=== PATIENT | male | born 1950 | race Two or more races ===

== ENCOUNTER → 2017-01-17 | Outpatient (CLI) | payer MEDICARE, BC ==
--- NOTE | 2017-02-10 00:54 | ECWPNPC ---
PATIENT NAME: PABLO MALDONADO : 1950 GENDER: MALE VISIT DATE: 01/17/2017 DISCHARGE DATE: 01/17/17 1202 VISIT LOCKED DATE TIME: PHYSICIAN: TIFFANY GUZMAN RESOURCE: TIFFANY GUZMAN HISTORY OF PRESENT ILLNESS HISTORY OF PRESENT ILLNESS: PAIN THE PATIENT DESCRIBES THE PAIN... FALL RISK SCREENING: SCREENING :NO FALLS IN THE PAST YEAR TODAY'S VISIT: NOTES: RATES PAIN TODAY 9/10. DESCRIBES PAIN CONSTANT AND SORE. HAS NOT YET COMPLETED CT OF LUMBAR SPINE.. IS SEEING DR OROSCO FOR LOWER EXTREMITES AND REPORTS LESIONS ARE HEALING SLOWLY.FELL 3 WEEKS AGO - LEGS GAVE OUT FROM BACK PAIN. VERY HARD TO STAND, AMBULATE IS NOT USING BACK BRACE IT IS RUBBING AND HURING THE SKIM ON HIS ARMS. REPORTS HE IS HAVE PRESSURE ULCRES TO SACRUM. CURRENT MEDICATIONS TAKING NOVOLOG FLEXPEN 100 UNIT/ML SOLUTION PEN-INJECTOR SUBCUTANEOUS SLIDING SCALE, NOTES: SLIDING SCALE TAKING VITAMIN D 02243 U TABLET ORALLY WEEKLY TAKING PANTOPRAZOLE SODIUM 20 MG TABLET DELAYED RELEASE 2 TABLETS ORALLY ONCE A DAY TAKING ZOFRAN 8 MG TABLET 1 TABLET ORALLY ONCE A DAY PRN TAKING TOPROL XL 25 MG TABLET EXTENDED RELEASE 24 HOUR 1/2 TABLET ORALLY ONCE A DAY TAKING PRAVASTATIN SODIUM 20 MG TABLET 1 TABLET ORALLY ONCE A DAY TAKING BENADRYL 25 MG CAPSULE ORALLY FOUR TIMES DAILY NEEDED TAKING CRANBERRY 500 MG CAPSULE 2 CAPS ORALLY DAILY TAKING ASPIRIN ADULT LOW DOSE 81 MG TABLET DELAYED RELEASE 1 TABLET ORALLY ONCE A DAY TAKING ACETAMINOPHEN 325 MG TABLET 2 TABLETS NEEDED ORALLY EVERY 6 HRS, NOTES: TAKING 3 TABS BID TAKING GABAPENTIN 300 MG CAPSULE 1 CAPSULE ORALLY DAILY TAKING FISH OIL 1200 MG CAPSULE 1 CAPSULE ORALLY ONCE A DAY, NOTES: DOESN'T USUALLY TAKE DAILY TAKING DIGESTIVE ADVANTAGE - CAPSULE ORALLY 3X/WEEK TAKING VITAMIN C 500 MG TABLET 2 TABLETS ORALLY ONCE A DAY TAKING SOMA 350 MG TABLET 1 TABLET NEEDED ORALLY THREE TIMES DAILY NEEDEDMDD=3 TAKING MS CONTIN 30 MG TABLET EXTENDED RELEASE 1 TABLET ORALLY Q 12 HOURS MDD=2 TAKING OXYBUTYNIN CHLORIDE 5 MG TABLET 1 TABLET ORALLY TWICE A DAY NOT-TAKING NORCO 7.5-325 MG TABLET 1 TABLET NEEDED ORALLY EVERY 6 HRS NOT-TAKING CIPRO 500 MG TABLET 1 TABLET ORALLY TWICE A DAY, NOTES: FOR UTI MEDICATION LIST REVIEWED AND RECONCILED WITH THE PATIENT PAST MEDICAL HISTORY TYPE II DIABETES MELLITUS CHRONIC PAIN SYNDROME PRURITIS VITAMIN D DEFICIENCY GERD HYPERLIPIDEMIA HYPERTENSION 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 REVIEW OF SYSTEMS CONSTITUTIONAL: ANY CHANGE IN YOUR MEDICAL CONDITION? NO . CHILLS NO . FEVER NO . INFECTION: DO YOU HAVE NEW INFECTIONS? NO . DO YOU HAVE HISTORY OF MRSA? NO . MUSCULOSKELETAL: ANY NEW PATTERNS OF PAIN OR NUMBNESS? NO . GASTROENTEROLOGY: GENERAL HAVING CONSTIPATION - FEELS COLACE IS GIVING DIARHEA. . ANY NEW CHANGE IN BOWEL CONTROL? NO . GENITOURINARY: ANY NEW CHANGE IN BLADDER CONTROL? NO . IS THERE A CHANCE YOU COULD BE ? NO . HEMATOLOGY/LYMPH: DO YOU TAKE ANY BLOOD THINNERS? (FOR EXAMPLE- COUMADIN, PLAVIX, AGGRENOX, PLATEL, PRADAXA, OR XARELTO) NO . WHEN WAS YOUR LAST DOSE? DATE: TIME: . NEUROLOGY: HAVE YOU FALLEN IN THE PAST 6 MONTHS? YES . ANY NEW EXTREMITY NUMBNESS OR WEAKNESS? NO . CARDIOLOGY: DO YOU HAVE A PACEMAKER OR DEFIBRILLATOR? NO . RESPIRATORY: HAVE YOU BEEN SICK IN THE PAST WEEK? NO . FEVER NO . FLU LIKE SYMPTOMS? NO . COUGH NO . INTEGUMENTARY: DO YOU HAVE ANY RASHES OR OPEN SORES? YES, OPEN SORES BOTH LEGS . ALLERGIC/IMMUNO: ARE YOU ALLERGIC TO SHELLFISH OR IV DYE? NO . ANY NEW ALLERGIES? NO . PSYCHIATRIC: DO YOU HAVE THOUGHTS OF HURTING YOURSELF OR SOMEONE ELSE? NO . ARE YOU ABUSED, NEGLECTED, OR IN AN UNSAFE ENVIRONMENT? NO . ENDOCRINOLOGY: ARE YOU DIABETIC? YES 250 - 300 BLOOD SUGARS. FOLLOWED CLOSELY BY PCP . OTHER: DO YOU NEED ANY PRESCRIPTIONS? YES . IF YES, PLEASE LIST: SOMA AND MORPHINE . ANY NEW PROBLEMS WITH YOUR MEDICATIONS? NO . WHEN DID YOU LAST EAT? ____ . WHEN DID YOU LAST DRINK? ____ . WHAT DID YOU LAST DRINK? ____ . NAME OF PERSON DRIVING YOU HOME? ____ . DO YOU HAVE ANY OTHER QUESTIONS OR CONCERNS NO . REVIEWED BY: PROVIDER: TIFFANY MARTIN . VITAL SIGNS WT 293 LBS, HT 61 IN, BMI 55.36 INDEX, BP 167/77 MM HG, HR 95 /MIN, RR 18 /MIN, TEMP 97.8 F, OXYGEN SAT % 93, NA INITIALS AW 1101, REVIEWED BY: CS. EXAMINATION GENERAL EXAMINATION: GENERAL APPEARANCE:USING WHEELCHAIR FOR MOBILITY - HAS 1/2 TLSO BRACE SUPPORT.. PSYCHALERT , ORIENTED X 3 , APPROPRIATE MOOD AND AFFECT , TALKATIVE. HEENT: NECK ENLARGED BUT NO PALPABLE THYROMEGLY,. LUNGS:CLEAR TO AUSCULTATION BILATERALLY, DECREASED AIR ENTRY AT BASES. HEART:NO CAROTID BRUITS, HEART RATE REGULAR, NORMAL S1S2, NO MURMURS, CLICK OR RUBS. MUSCULOSKELETAL:MUSCLE STRENGTH TESTING 4/5 BILATERAL LOWER EXTREMITIES. PAIN WITH PALPATION OVER LUMBAR SPINOUS PROCESSES. , TRIGGER POINTSAND TIGHT FIBROUS BANDS OVER LUMBAR AND THORACIC PARAVERTEBRAL MUSCLES. IS ABLE TO RISE TO STANDING POSITION. GAIT WIDEBASED, REQUIRES HANDHOLDS FOR BALANCE. EXTREMITIES:STASIS DERMATITIS BILATERALLY, BILATERAL PITTING EDEMA, SATURATED DRESSING INTACTED TO LEFT LEG. PERIPHERAL PULSES:UNABLE TO PALPATE DUE TO WOUNDS AND EDEMA.. ASSESSMENTS DORSALGIA, UNSPECIFIED - M54.9 (PRIMARY) CHRONIC PRESCRIPTION OPIATE USE - Z79.891 TREATMENT DORSALGIA, UNSPECIFIED REFILL MS CONTIN TABLET EXTENDED RELEASE, 30 MG, 1 TABLET, ORALLY, Q 12 HOURS MDD=2, 30 DAY(S), 60, REFILLS 0 REFILL SOMA TABLET, 350 MG, 1 TABLET NEEDED, ORALLY, THREE TIMES DAILY NEEDEDMDD=3, 30 DAY(S), 90, REFILLS 0 NOTES: REVIEWED DIET - BE SURE TO GET ADEQUETE PROTEIN DAILY FOR WOUND HEALING. STAND AND STRETCH DAILY. ROTATE ANKLES AND SHOULDER. GET CT OF BACK DONE. CONTINUE CURRENT MEDS. PROCEDURE CODES FA211 ESTABILISHED PATIENT [facility] FACILITY CHARGE G8730 PAIN ASSESS POS TOOL F/U PLAN DOC G8427 DOC MEDS VERIFIED W/PT OR RE DISPOSITION & COMMUNICATION FOLLOW UP 26-28 DAYS (REASON: BACK PAIN /CT REVIEW) ELECTRONICALLY SIGNED BY ROBYN BECERRA ON 02/09/2017 AT 10:41 AM EDT DISCLAIMER : THIS IS A VISIT SUMMARY EXTRACTED FROM THE [employer] CHART. IT IS NOT A COPY OF THE [employer] PROGRESS NOTE. MTDD
== END ==
LOC: M PAIN 11:00
PROVIDERS: ATTEND Nurse Practitioner Family
DX: G89.29 Other chronic pain (principal); M54.9 Dorsalgia, unspecified; E11.9 Type 2 diabetes mellitus without complications; E55.9 Vitamin D deficiency, unspecified; K21.9 Gastro-esophageal reflux disease without esophagitis; E78.5 Hyperlipidemia, unspecified; I10 Essential (primary) hypertension; L29.9 Pruritus, unspecified; K59.00 Constipation, unspecified; N28.9 Disorder of kidney and ureter, unspecified; I73.9 Peripheral vascular disease, unspecified; Z79.891 Long term (current) use of opiate analgesic; Z87.442 Personal history of urinary calculi; Z79.4 Long term (current) use of insulin; Z79.82 Long term (current) use of aspirin; Z79.899 Other long term (current) drug therapy

== ENCOUNTER → 2017-02-15 | Outpatient (CLI) | payer MEDICARE, BC | LOC: M PAIN 11:00 | PROVIDERS: ATTEND Nurse Practitioner Family | DX: G89.29 Other chronic pain (principal); M54.9 Dorsalgia, unspecified; E11.42 Type 2 diabetes mellitus with diabetic polyneuropathy; E55.9 Vitamin D deficiency, unspecified; K21.9 Gastro-esophageal reflux disease without esophagitis; M48.06 Spinal stenosis, lumbar region; E11.51 Type 2 diabetes mellitus with diabetic peripheral angiopathy without gangrene; E78.5 Hyperlipidemia, unspecified; I10 Essential (primary) hypertension; K59.00 Constipation, unspecified; Z79.891 Long term (current) use of opiate analgesic; Z87.442 Personal history of urinary calculi; Z79.4 Long term (current) use of insulin; Z79.82 Long term (current) use of aspirin; Z79.899 Other long term (current) drug therapy | CPT/HCPCS: 97597; G0463 ==

== ENCOUNTER → 2017-03-15 | Outpatient (CLI) | payer MEDICARE, BC ==
--- NOTE | 2017-04-04 03:41 | ECWPNPC ---
PATIENT NAME: PABLO MALDONADO : 1950 GENDER: MALE VISIT DATE: 03/15/2017 DISCHARGE DATE: 03/15/17 1140 VISIT LOCKED DATE TIME: PHYSICIAN: TIFFANY GUZMAN RESOURCE: TIFFANY GUZMAN REASON FOR APPOINTMENT 1. BACK PAIN HISTORY OF PRESENT ILLNESS HISTORY OF PRESENT ILLNESS: PAIN THE PATIENT DESCRIBES THE PAIN... FALL RISK SCREENING: SCREENING :NO FALLS IN THE PAST YEAR TODAY'S VISIT: NOTES: REPORTS PAIN 9/10. IN BACK. LEGS ARE NEARLY HEALED. NOTES DR OROSCO HAS DONE REALLY GOOD WORK TO HELP WITH THIS. IS STILL HAVING ISSUES WITH SACRAL LESIONS. IS ASKING TODAY ABOUT A RECOMMENDATION FOR A POWER CHAIR. REPORTS HIS BACK PAIN IS CURRENTLY THE WORSE.. CURRENT MEDICATIONS TAKING NOVOLOG FLEXPEN 100 UNIT/ML SOLUTION PEN-INJECTOR SUBCUTANEOUS SLIDING SCALE, NOTES: SLIDING SCALE TAKING VITAMIN D 69877 U TABLET ORALLY WEEKLY TAKING PANTOPRAZOLE SODIUM 20 MG TABLET DELAYED RELEASE 2 TABLETS ORALLY ONCE A DAY TAKING ZOFRAN 8 MG TABLET 1 TABLET ORALLY ONCE A DAY PRN TAKING TOPROL XL 25 MG TABLET EXTENDED RELEASE 24 HOUR 1/2 TABLET ORALLY ONCE A DAY TAKING PRAVASTATIN SODIUM 20 MG TABLET 1 TABLET ORALLY ONCE A DAY TAKING BENADRYL 25 MG CAPSULE ORALLY FOUR TIMES DAILY NEEDED TAKING CRANBERRY 500 MG CAPSULE 2 CAPS ORALLY DAILY TAKING ASPIRIN ADULT LOW DOSE 81 MG TABLET DELAYED RELEASE 1 TABLET ORALLY ONCE A DAY TAKING ACETAMINOPHEN 325 MG TABLET 2 TABLETS NEEDED ORALLY EVERY 6 HRS, NOTES: TAKING 3 TABS BID TAKING GABAPENTIN 300 MG CAPSULE 1 CAPSULE ORALLY DAILY TAKING FISH OIL 1200 MG CAPSULE 1 CAPSULE ORALLY ONCE A DAY, NOTES: DOESN'T USUALLY TAKE DAILY TAKING DIGESTIVE ADVANTAGE - CAPSULE ORALLY 3X/WEEK TAKING VITAMIN C 500 MG TABLET 2 TABLETS ORALLY ONCE A DAY TAKING OXYBUTYNIN CHLORIDE 5 MG TABLET 1 TABLET ORALLY TWICE A DAY TAKING MS CONTIN 30 MG TABLET EXTENDED RELEASE 1 TABLET ORALLY Q 12 HOURS MDD=2 TAKING SOMA 350 MG TABLET 1 TABLET NEEDED ORALLY THREE TIMES DAILY NEEDEDMDD=3 NOT-TAKING NORCO 7.5-325 MG TABLET 1 TABLET NEEDED ORALLY EVERY 6 HRS NOT-TAKING CIPRO 500 MG TABLET 1 TABLET ORALLY TWICE A DAY, NOTES: FOR UTI MEDICATION LIST REVIEWED AND RECONCILED WITH THE PATIENT PAST MEDICAL HISTORY TYPE II DIABETES MELLITUS CHRONIC PAIN SYNDROME PRURITIS VITAMIN D DEFICIENCY GERD HYPERLIPIDEMIA HYPERTENSION 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 SURGICAL HISTORY BROKEN NECK 1968 URETERAL STENT X2 2016 FAMILY HISTORY FATHER: , DIAGNOSED WITH HEART DISEASE MOTHER: , DIAGNOSED WITH HEART DISEASE, STROKE DAUGHTER(S): ALIVE 1DAUGHTER(S) - HEALTHY. HOSPITALIZATION/MAJOR DIAGNOSTIC PROCEDURE BROKEN NECK 1968 RINGWORM 195 KIDNEY FAILURE 2016 CORRECTION FOR PHYSICAL REHAB 07/2016-09/2016 OSTEOMYLITIS 2008 BLOOD CLOTS IN LUNGS AND SHOULDER 2004 EDEMA IN LEGS 1998 OSTEOMYLITIS 2009 & 2012 REVIEW OF SYSTEMS REVIEWED BY: PROVIDER: TIFFANY GUZMAN TABULAR TYPIST . CONSTITUTIONAL: ANY CHANGE IN YOUR MEDICAL CONDITION? NO . CHILLS NO . FEVER NO . INFECTION: DO YOU HAVE NEW INFECTIONS? NO . DO YOU HAVE HISTORY OF MRSA? NO . MUSCULOSKELETAL: ANY NEW PATTERNS OF PAIN OR NUMBNESS? NO . GASTROENTEROLOGY: ANY NEW CHANGE IN BOWEL CONTROL? NO . GENITOURINARY: ANY NEW CHANGE IN BLADDER CONTROL? NO . IS THERE A CHANCE YOU COULD BE ? NO . HEMATOLOGY/LYMPH: DO YOU TAKE ANY BLOOD THINNERS? (FOR EXAMPLE- COUMADIN, PLAVIX, AGGRENOX, PLATEL, PRADAXA, OR XARELTO) NO . WHEN WAS YOUR LAST DOSE? DATE: TIME: . NEUROLOGY: HAVE YOU FALLEN IN THE PAST 6 MONTHS? NO . ANY NEW EXTREMITY NUMBNESS OR WEAKNESS? NO . CARDIOLOGY: DO YOU HAVE A PACEMAKER OR DEFIBRILLATOR? NO . RESPIRATORY: HAVE YOU BEEN SICK IN THE PAST WEEK? NO . FEVER NO . FLU LIKE SYMPTOMS? NO . COUGH NO . INTEGUMENTARY: DO YOU HAVE ANY RASHES OR OPEN SORES? YES BILATERAL LOWER LEGS SEE DR OROSCO FOR CARE . ALLERGIC/IMMUNO: ARE YOU ALLERGIC TO SHELLFISH OR IV DYE? NO . ANY NEW ALLERGIES? NO . PSYCHIATRIC: DO YOU HAVE THOUGHTS OF HURTING YOURSELF OR SOMEONE ELSE? NO . ARE YOU ABUSED, NEGLECTED, OR IN AN UNSAFE ENVIRONMENT? NO . ENDOCRINOLOGY: ARE YOU DIABETIC? YES - 230 - [address] LANDA'S TEAM IS ASSISTNG AND STARTING NEW MED&NBSP;. OTHER: DO YOU NEED ANY PRESCRIPTIONS? YES MORPHINE AND SOMA . IF YES, PLEASE LIST: ____ . ANY NEW PROBLEMS WITH YOUR MEDICATIONS? NO . WHEN DID YOU LAST EAT? ____ . WHEN DID YOU LAST DRINK? ____ . WHAT DID YOU LAST DRINK? ____ . NAME OF PERSON DRIVING YOU HOME? ____ . DO YOU HAVE ANY OTHER QUESTIONS OR CONCERNS NO . PSYCHOLOGY: HIGH STRESS LEVEL LIMITED MOBILITTY, FAMILY SITUATION AND IS RECOVERING FROM FOOT . VITAL SIGNS WT 300.0 LBS, HT 61 IN, BMI 56.68 INDEX, BP 174/81 MM HG, HR 89 /MIN, RR 18 /MIN, TEMP 97.9 F, OXYGEN SAT % 93%, NA INITIALS TL 1048, REVIEWED BY: KGELEVATED BP, PATIENT STATES IT IS HIS NORMAL- TL. EXAMINATION GENERAL EXAMINATION: GENERAL APPEARANCE:USING WHEELCHAIR FOR MOBILITY - HAS 1/2 TLSO BRACE SUPPORT.. PSYCHALERT , ORIENTED X 3 , APPROPRIATE MOOD AND AFFECT , TALKATIVE. LUNGS:CLEAR TO AUSCULTATION BILATERALLY, DECREASED AIR ENTRY AT BASES. HEART:HEART RATE REGULAR. MUSCULOSKELETAL:MUSCLE STRENGTH TESTING 4/5 BILATERAL LOWER EXTREMITIES. PAIN WITH PALPATION OVER LUMBAR SPINOUS PROCESSES. , TRIGGER POINTSAND TIGHT FIBROUS BANDS OVER LUMBAR AND THORACIC PARAVERTEBRAL MUSCLES. IS ABLE TO RISE TO STANDING POSITION. GAIT WIDEBASED, REQUIRES HANDHOLDS FOR BALANCE. EXTREMITIES:STASIS DERMATITIS BILATERALLY, BILATERAL PITTING EDEMA,DRESSING INTACT TO LEFT LEG WITHOUT OBSERVED DRAINAGE TODAY.. PERIPHERAL PULSES:UNABLE TO PALPATE DUE TO WOUNDS AND EDEMA.. 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 THERE IS HYPERTROPHY OF [place] FLAVA AND POSTERIOR FACETS AT ALL LEVELS. POST EVIDENCE OF OSTEOMYELITIS NOTED. REPORT GIVEN TO DR SERRANO FOR REVIEW FOR FUTURE INTERVENTIONAL TREATMENT ONCE LEG WOUNDS ARE HEALED. ASSESSMENTS OTHER CHRONIC PAIN - G89.29 (PRIMARY) DORSALGIA, UNSPECIFIED - M54.9 DIABETIC POLYNEUROPATHY ASSOCIATED WITH TYPE 2 DIABETES MELLITUS - E11.42 CHRONIC PRESCRIPTION OPIATE USE - Z79.891 TREATMENT OTHER CHRONIC PAIN REFILL MS CONTIN TABLET EXTENDED RELEASE, 30 MG, 1 TABLET, ORALLY, Q 12 HOURS MDD=2, 30 DAY(S), 60, REFILLS 0 REFILL SOMA TABLET, 350 MG, 1 TABLET NEEDED, ORALLY, THREE TIMES DAILY NEEDEDMDD=3, 30 DAY(S), 90, REFILLS 0 NOTES: CONTINUE CURRENT MEDS. RECOMMEND POWER CHAIR FOR MOBILITY, SAFETY, AND TO IMPROVE SKIN HEALING. START PHYSICAL THERAPY. PROCEDURE CODES FA211 ESTABILISHED PATIENT [facility] CHARGE G8730 PAIN ASSESS POS TOOL F/U PLAN DOC G8427 DOC MEDS VERIFIED W/PT OR RE DISPOSITION & COMMUNICATION FOLLOW UP 26-28 DAYS (REASON: BACK PAIN) ELECTRONICALLY SIGNED BY ROBYN BECERRA ON 04/03/2017 AT 09:09 AM EDT DISCLAIMER : THIS IS A VISIT SUMMARY EXTRACTED FROM THE [employer] CHART. IT IS NOT A COPY OF THE [employer] PROGRESS NOTE. ROXIED
== END ==
LOC: M PAIN 10:20
PROVIDERS: ATTEND Nurse Practitioner Family
DX: G89.29 Other chronic pain (principal); M54.9 Dorsalgia, unspecified; E11.42 Type 2 diabetes mellitus with diabetic polyneuropathy; E55.9 Vitamin D deficiency, unspecified; K21.9 Gastro-esophageal reflux disease without esophagitis; E78.5 Hyperlipidemia, unspecified; I10 Essential (primary) hypertension; K59.00 Constipation, unspecified; I73.9 Peripheral vascular disease, unspecified; Z87.442 Personal history of urinary calculi; Z79.891 Long term (current) use of opiate analgesic; Z79.4 Long term (current) use of insulin; Z79.82 Long term (current) use of aspirin; Z79.899 Other long term (current) drug therapy; Z86.711 Personal history of pulmonary embolism; Z86.718 Personal history of other venous thrombosis and embolism
CPT/HCPCS: 29581; G0463

== ENCOUNTER → 2017-04-04 | Outpatient (REF) | payer MEDICARE, BC ==
[2017-04-05 16:15] LABS: BACTERIA, URINE LARGE AMOUNT; HYALINE CAST, URINE NONE SEEN /lpf (0-1); MICROSCOPIC EXAM PERFORMED; RBC, URINE 20-30 /hpf (0-3); SQUAMOUS EPITHELIAL CELL URINE SMALL AMOUNT /hpf (SMALL AMT); WBC, URINE TNTC /hpf (0-3)
== END ==
LOC: M LAB REF 12:59
PROVIDERS: ATTEND Internal Medicine Nephrology
DX: R80.9 Proteinuria, unspecified (principal); R31.9 Hematuria, unspecified

== ENCOUNTER → 2017-04-09 | Outpatient (CLI) | payer MEDICARE, BC ==
--- NOTE | 2017-04-09 11:54 | REP ---
RENAL AND BLADDER ULTRASOUND: Real-time sonographic evaluation of the kidneys performed. Right kidney is smaller than the left. Right kidney measures 11.4 x 5.4 x 4.6 cm and left kidney 14.4 x 5.8 5.2 cm. No hydronephrosis is seen bilaterally. Study is limited due to patient body habitus. There is cortical thinning on the right. Focal hypoechoic area in the upper pole is not optimally visualized, and an underlying nodule cannot be excluded. This measures about 3 cm in diameter. No other definite renal abnormality is seen bilaterally. Urinary bladder is mildly distended with a volume of 178 mL. No definite bladder mass or calculus is seen. IMPRESSION: Limited exam due to patient body habitus. Cortical thinning right kidney. No hydronephrosis. Possible nodule upper pole right kidney. Recommend dedicated CT kidneys with and without contrast to further evaluate. Signed by Anuj Viera MD 04/09/2017 01:13 P
== END ==
LOC: M RAD 09:37
PROVIDERS: ATTEND Internal Medicine Nephrology
DX: N18.3 Chronic kidney disease, stage 3 (moderate) (principal); R31.9 Hematuria, unspecified; E11.22 Type 2 diabetes mellitus with diabetic chronic kidney disease

== ENCOUNTER → 2017-04-16 | Outpatient (CLI) | payer MEDICARE, BC ==
--- NOTE | 2017-05-05 23:42 | ECWPNPC ---
PATIENT NAME: MINI MALDONADO : 1950 GENDER: MALE VISIT DATE: 04/16/2017 DISCHARGE DATE: 04/16/17 1322 VISIT LOCKED DATE TIME: PHYSICIAN: TIFFANY GUZMAN RESOURCE: TIFFANY GUZMAN REASON FOR APPOINTMENT 1. 26-28 DAYS HISTORY OF PRESENT ILLNESS HISTORY OF PRESENT ILLNESS: PAIN THE PATIENT DESCRIBES THE PAIN... FALL RISK SCREENING: SCREENING :NO FALLS IN THE PAST YEAR TODAY'S VISIT: NOTES: STATES IS HAVING MORE PAIN IN THE LOW BACK. NOTES IS HAVING DIFFICULTY WITH THIS, NO RADIATION OF PAIN TO LEGS. REPORTS LEGS HAVE BEEN HEALING BUT HAS HAD PROBLEMS WITH POWER AT HOME. AND HAD TO SIT IN CHAIR ALL NIGHT FOR 2 NITES AND THIS CAUSED AN EXACERBATION OF THE LEG ULCERS. RATES PAIN LEVEL TODAY 9/10. PAIN IS CENTERED IN LOW BACK RADIATING TO THE HIPS WELL IN TH ELEGS. . CURRENT MEDICATIONS TAKING NOVOLOG FLEXPEN 100 UNIT/ML SOLUTION PEN-INJECTOR SUBCUTANEOUS SLIDING SCALE, NOTES: SLIDING SCALE TAKING VITAMIN D 55707 U TABLET ORALLY WEEKLY TAKING PANTOPRAZOLE SODIUM 20 MG TABLET DELAYED RELEASE 2 TABLETS ORALLY ONCE A DAY TAKING ZOFRAN 8 MG TABLET 1 TABLET ORALLY ONCE A DAY PRN TAKING TOPROL XL 25 MG TABLET EXTENDED RELEASE 24 HOUR 1/2 TABLET ORALLY ONCE A DAY TAKING PRAVASTATIN SODIUM 20 MG TABLET 1 TABLET ORALLY ONCE A DAY TAKING BENADRYL 25 MG CAPSULE ORALLY FOUR TIMES DAILY NEEDED TAKING ASPIRIN ADULT LOW DOSE 81 MG TABLET DELAYED RELEASE 1 TABLET ORALLY ONCE A DAY TAKING ACETAMINOPHEN 325 MG TABLET 2 TABLETS NEEDED ORALLY EVERY 6 HRS, NOTES: TAKING 3 TABS BID TAKING GABAPENTIN 300 MG CAPSULE 1 CAPSULE ORALLY DAILY TAKING FISH OIL 1200 MG CAPSULE 1 CAPSULE ORALLY ONCE A DAY, NOTES: DOESN'T USUALLY TAKE DAILY TAKING DIGESTIVE ADVANTAGE - CAPSULE ORALLY 3X/WEEK TAKING OXYBUTYNIN CHLORIDE 5 MG TABLET 1 TABLET ORALLY TWICE A DAY TAKING MS CONTIN 30 MG TABLET EXTENDED RELEASE 1 TABLET ORALLY Q 12 HOURS MDD=2 TAKING SOMA 350 MG TABLET 1 TABLET NEEDED ORALLY THREE TIMES DAILY NEEDEDMDD=3 TAKING AMLODIPINE BESYLATE 5 MG TABLET 1 TABLET ORALLY ONCE A DAY NOT-TAKING CRANBERRY 500 MG CAPSULE 2 CAPS ORALLY DAILY NOT-TAKING VITAMIN C 500 MG TABLET 2 TABLETS ORALLY ONCE A DAY NOT-TAKING NORCO 7.5-325 MG TABLET 1 TABLET NEEDED ORALLY EVERY 6 HRS NOT-TAKING CIPRO 500 MG TABLET 1 TABLET ORALLY TWICE A DAY, NOTES: FOR UTI MEDICATION LIST REVIEWED AND RECONCILED WITH THE PATIENT PAST MEDICAL HISTORY TYPE II DIABETES MELLITUS CHRONIC PAIN SYNDROME PRURITIS VITAMIN D DEFICIENCY GERD HYPERLIPIDEMIA HYPERTENSION 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 REVIEW OF SYSTEMS REVIEWED BY: PROVIDER: TIFFANY MARTIN . CONSTITUTIONAL: ANY CHANGE IN YOUR MEDICAL CONDITION? NO . CHILLS NO . FEVER NO . INFECTION: DO YOU HAVE NEW INFECTIONS? NO . DO YOU HAVE HISTORY OF MRSA? NO . MUSCULOSKELETAL: ANY NEW PATTERNS OF PAIN OR NUMBNESS? NO . GASTROENTEROLOGY: ANY NEW CHANGE IN BOWEL CONTROL? NO . GENITOURINARY: ANY NEW CHANGE IN BLADDER CONTROL? NO . IS THERE A CHANCE YOU COULD BE ? NO . HEMATOLOGY/LYMPH: DO YOU TAKE ANY BLOOD THINNERS? (FOR EXAMPLE- COUMADIN, PLAVIX, AGGRENOX, PLATEL, PRADAXA, OR XARELTO) NO . WHEN WAS YOUR LAST DOSE? DATE: TIME: . NEUROLOGY: HAVE YOU FALLEN IN THE PAST 6 MONTHS? NO . ANY NEW EXTREMITY NUMBNESS OR WEAKNESS? NO . CARDIOLOGY: DO YOU HAVE A PACEMAKER OR DEFIBRILLATOR? NO . RESPIRATORY: HAVE YOU BEEN SICK IN THE PAST WEEK? NO . FEVER NO . FLU LIKE SYMPTOMS? NO . COUGH NO . INTEGUMENTARY: DO YOU HAVE ANY RASHES OR OPEN SORES? NO . ALLERGIC/IMMUNO: ARE YOU ALLERGIC TO SHELLFISH OR IV DYE? NO . ANY NEW ALLERGIES? NO . PSYCHIATRIC: DO YOU HAVE THOUGHTS OF HURTING YOURSELF OR SOMEONE ELSE? NO . ARE YOU ABUSED, NEGLECTED, OR IN AN UNSAFE ENVIRONMENT? NO . ENDOCRINOLOGY: ARE YOU DIABETIC? YES - BLOD SUGARS UNDER BETTER CONTROL . OTHER: DO YOU NEED ANY PRESCRIPTIONS? YES . IF YES, PLEASE LIST: MORPHINE, SOMA . ANY NEW PROBLEMS WITH YOUR MEDICATIONS? MORPHINE IS NOT HOLDING ANYMORE / TOO MUCH PAIN / TOOK LAST PILL TODAY BACK HURTS TOO MUCH WHEN HE STANDS UP / CANNOT DRESS SELF ANYMORE/ DIFFUCULT GETTING OUT OF BED AND TOILETING SELF. . WHEN DID YOU LAST EAT? ____ . WHEN DID YOU LAST DRINK? ____ . WHAT DID YOU LAST DRINK? ____ . NAME OF PERSON DRIVING YOU HOME? ____ . DO YOU HAVE ANY OTHER QUESTIONS OR CONCERNS NO . VITAL SIGNS WT 300 LBS, HT 61 IN, BMI 56.68 INDEX, BP 145/75 MM HG, HR 83 /MIN, RR 18 /MIN, TEMP 98:5, OXYGEN SAT % 96%, NA INITIALS SC 12:10, REVIEWED BY: NL. EXAMINATION GENERAL EXAMINATION: GENERAL APPEARANCE:USING WHEELCHAIR FOR MOBILITY . PSYCHALERT , ORIENTED X 3 , APPROPRIATE MOOD AND AFFECT , TALKATIVE. LUNGS:CLEAR TO AUSCULTATION BILATERALLY. HEART:HEART RATE REGULAR. MUSCULOSKELETAL:MUSCLE STRENGTH TESTING 4/5 BILATERAL LOWER EXTREMITIES. PAIN WITH PALPATION OVER LUMBAR SPINOUS PROCESSES. , TRIGGER POINTSAND TIGHT FIBROUS BANDS OVER LUMBAR AND THORACIC PARAVERTEBRAL MUSCLES. VERY DIFFICULT TO RISE TO STANDING POSITION TODAY. EXTREMITIES:STASIS DERMATITIS BILATERALLY, BILATERAL PITTING EDEMA,DRESSING INTACT TO LEFT LEG WITHOUT OBSERVED DRAINAGE TODAY.. PERIPHERAL PULSES:UNABLE TO PALPATE DUE TO WOUNDS AND EDEMA.. ASSESSMENTS OTHER CHRONIC PAIN - G89.29 (PRIMARY) DORSALGIA, UNSPECIFIED - M54.9 DIABETIC POLYNEUROPATHY ASSOCIATED WITH TYPE 2 DIABETES MELLITUS - E11.42 CHRONIC PRESCRIPTION OPIATE USE - Z79.891 TREATMENT OTHER CHRONIC PAIN REFILL MS CONTIN TABLET EXTENDED RELEASE, 30 MG, 1 TABLET, ORALLY, Q 12 HOURS MDD=2, 30 DAY(S), 60, REFILLS 0 REFILL SOMA TABLET, 350 MG, 1 TABLET NEEDED, ORALLY, THREE TIMES DAILY NEEDEDMDD=3, 30 DAY(S), 90, REFILLS 0 START MORPHINE SULFATE TABLET, 15 MG, 1 TABLET NEEDED, ORALLY, EVERY 4 HRS PRN PAIN MDD=2, 30 DAY(S), 30, REFILLS 0 NOTES: CONSIDER PHYSICAL THERAPY. PROCEDURE CODES FA211 ESTABILISHED PATIENT [facility] FACILITY CHARGE G8730 PAIN ASSESS POS TOOL F/U PLAN DOC G8427 DOC MEDS VERIFIED W/PT OR RE DISPOSITION & COMMUNICATION FOLLOW UP 26-28 DAYS (REASON: BACK PAIN) ELECTRONICALLY SIGNED BY ROBYN BECERRA ON 05/04/2017 AT 05:29 PM EDT DISCLAIMER : THIS IS A VISIT SUMMARY EXTRACTED FROM THE [employer] CHART. IT IS NOT A COPY OF THE [employer] PROGRESS NOTE. MTDD
== END ==
LOC: M PAIN 11:20
PROVIDERS: ATTEND Nurse Practitioner Family
DX: M54.9 Dorsalgia, unspecified (principal); G89.29 Other chronic pain; E11.42 Type 2 diabetes mellitus with diabetic polyneuropathy; Z79.891 Long term (current) use of opiate analgesic; Z79.899 Other long term (current) drug therapy; Z79.4 Long term (current) use of insulin; Z79.82 Long term (current) use of aspirin

== ENCOUNTER → 2017-04-19 | Outpatient (CLI) | payer MEDICARE, BC ==
--- NOTE | 2017-04-19 13:34 | REP ---
Right lower extremity deep vein duplex ultrasound: Deep vein duplex ultrasound is performed from the popliteal vein to the common femoral vein of the right lower extremity. The deep veins demonstrate normal compression, normal Doppler color flow and normal Doppler waveforms with respiration augmentation at multiple levels from the popliteal vein to the common femoral vein. Impression: There is no deep vein thrombus. Signed by Anuj Pantoja MD 04/19/2017 01:25 P
== END ==
LOC: M RAD 11:07
PROVIDERS: ATTEND Surgery
DX: I87.311 Chronic venous hypertension (idiopathic) with ulcer of right lower extremity (principal)

== ENCOUNTER → 2017-05-11 | Outpatient (CLI) | payer MEDICARE, BC ==
--- NOTE | 2017-05-20 23:41 | ECWPNPC ---
PATIENT NAME: MINI MALDONADO : 1950 GENDER: MALE VISIT DATE: 05/11/2017 DISCHARGE DATE: 05/11/17 1305 VISIT LOCKED DATE TIME: PHYSICIAN: TIFFANY GUZMAN RESOURCE: TIFFANY GUZMAN REASON FOR APPOINTMENT 1. I WOULD LIKE THE PATIENT TO CONTINUE PHYSICAL THERAPY AT THIS TIME HISTORY OF PRESENT ILLNESS HISTORY OF PRESENT ILLNESS: PAIN THE PATIENT DESCRIBES THE PAIN... FALL RISK SCREENING: SCREENING :NO FALLS IN THE PAST YEAR TODAY'S VISIT: NOTES: RATES PAIN TODAY 9/10. STATES PAIN IS CONSTANT. ADDITION OF MORPHINE 15 MG IR HAS BEEN HELPFUL DID NOT NEED TO USE ENTIRE SUPPLY. HAD RECENT NEW INJRY TO LEG - NEW OPEN LESION AND IS BEING FOLLOWED CLOSELY WITH DR OROSCO. IS USING LUMBAR CUSHION IN CHAIR WHICH IS HELPFUL. SLEEP IS BETTER WHEN TURNS TV OFF. HAS BEEN SPENDING MORE TIME IN BED WORKING TO GET LEGS HEEL. . CURRENT MEDICATIONS TAKING NOVOLOG FLEXPEN 100 UNIT/ML SOLUTION PEN-INJECTOR SUBCUTANEOUS SLIDING SCALE, NOTES: SLIDING SCALE TAKING VITAMIN D 06847 U TABLET ORALLY WEEKLY TAKING PANTOPRAZOLE SODIUM 20 MG TABLET DELAYED RELEASE 2 TABLETS ORALLY ONCE A DAY TAKING ZOFRAN 8 MG TABLET 1 TABLET ORALLY ONCE A DAY PRN TAKING TOPROL XL 25 MG TABLET EXTENDED RELEASE 24 HOUR 1/2 TABLET ORALLY ONCE A DAY TAKING PRAVASTATIN SODIUM 20 MG TABLET 1 TABLET ORALLY ONCE A DAY TAKING BENADRYL 25 MG CAPSULE ORALLY FOUR TIMES DAILY NEEDED TAKING ASPIRIN ADULT LOW DOSE 81 MG TABLET DELAYED RELEASE 1 TABLET ORALLY ONCE A DAY TAKING ACETAMINOPHEN 325 MG TABLET 2 TABLETS NEEDED ORALLY EVERY 6 HRS, NOTES: TAKING 3 TABS BID TAKING GABAPENTIN 300 MG CAPSULE 1 CAPSULE ORALLY DAILY TAKING FISH OIL 1200 MG CAPSULE 1 CAPSULE ORALLY ONCE A DAY, NOTES: DOESN'T USUALLY TAKE DAILY TAKING DIGESTIVE ADVANTAGE - CAPSULE ORALLY 3X/WEEK TAKING OXYBUTYNIN CHLORIDE 5 MG TABLET 1 TABLET ORALLY TWICE A DAY TAKING AMLODIPINE BESYLATE 5 MG TABLET 1 TABLET ORALLY ONCE A DAY TAKING MS CONTIN 30 MG TABLET EXTENDED RELEASE 1 TABLET ORALLY Q 12 HOURS MDD=2 TAKING SOMA 350 MG TABLET 1 TABLET NEEDED ORALLY THREE TIMES DAILY NEEDEDMDD=3 TAKING MORPHINE SULFATE 15 MG TABLET 1 TABLET NEEDED ORALLY EVERY 4 HRS PRN PAIN MDD=2 NOT-TAKING CRANBERRY 500 MG CAPSULE 2 CAPS ORALLY DAILY NOT-TAKING VITAMIN C 500 MG TABLET 2 TABLETS ORALLY ONCE A DAY NOT-TAKING NORCO 7.5-325 MG TABLET 1 TABLET NEEDED ORALLY EVERY 6 HRS NOT-TAKING CIPRO 500 MG TABLET 1 TABLET ORALLY TWICE A DAY, NOTES: FOR UTI MEDICATION LIST REVIEWED AND RECONCILED WITH THE PATIENT PAST MEDICAL HISTORY TYPE II DIABETES MELLITUS CHRONIC PAIN SYNDROME PRURITIS VITAMIN D DEFICIENCY GERD HYPERLIPIDEMIA HYPERTENSION 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 SURGICAL HISTORY BROKEN NECK 1969 URETERAL STENT X2 2016 HOSPITALIZATION/MAJOR DIAGNOSTIC PROCEDURE BROKEN NECK 1968 RINGWORM 195 KIDNEY FAILURE 2016 HALF-WAY FOR PHYSICAL REHAB 07/2016-09/2016 OSTEOMYLITIS 2009 BLOOD CLOTS IN LUNGS AND SHOULDER 2004 EDEMA IN LEGS 1998 OSTEOMYLITIS 2009 & 2012 REVIEW OF SYSTEMS REVIEWED BY: PROVIDER: TIFFANY MARTIN . CONSTITUTIONAL: ANY CHANGE IN YOUR MEDICAL CONDITION? NO . CHILLS NO . FEVER NO . INFECTION: DO YOU HAVE NEW INFECTIONS? NO . DO YOU HAVE HISTORY OF MRSA? NO . MUSCULOSKELETAL: ANY NEW PATTERNS OF PAIN OR NUMBNESS? NO . GASTROENTEROLOGY: ANY NEW CHANGE IN BOWEL CONTROL? NO . GENITOURINARY: ANY NEW CHANGE IN BLADDER CONTROL? NO . IS THERE A CHANCE YOU COULD BE ? NO . HEMATOLOGY/LYMPH: DO YOU TAKE ANY BLOOD THINNERS? (FOR EXAMPLE- COUMADIN, PLAVIX, AGGRENOX, PLATEL, PRADAXA, OR XARELTO) NO . WHEN WAS YOUR LAST DOSE? DATE: TIME: . NEUROLOGY: HAVE YOU FALLEN IN THE PAST 6 MONTHS? YES, PT STATES HE SLIPPED TRANSFERING FROM BED TO WHEELCHAIR. PT DENIES MAJOR INJURIES REQUIRING MEDICAL ATTENTION . ANY NEW EXTREMITY NUMBNESS OR WEAKNESS? NO . CARDIOLOGY: DO YOU HAVE A PACEMAKER OR DEFIBRILLATOR? NO . RESPIRATORY: HAVE YOU BEEN SICK IN THE PAST WEEK? NO . FEVER NO . FLU LIKE SYMPTOMS? NO . COUGH NO . INTEGUMENTARY: DO YOU HAVE ANY RASHES OR OPEN SORES? YES, BILAT LEGS, PT STATES DR OROSCO IS SEEING PT FOR THIS . ALLERGIC/IMMUNO: ARE YOU ALLERGIC TO SHELLFISH OR IV DYE? NO . ANY NEW ALLERGIES? NO . PSYCHIATRIC: DO YOU HAVE THOUGHTS OF HURTING YOURSELF OR SOMEONE ELSE? NO . ARE YOU ABUSED, NEGLECTED, OR IN AN UNSAFE ENVIRONMENT? NO . ENDOCRINOLOGY: ARE YOU DIABETIC? YES . OTHER: DO YOU NEED ANY PRESCRIPTIONS? YES, SOMA 15 & 30, MORPHINE . IF YES, PLEASE LIST: ____ . ANY NEW PROBLEMS WITH YOUR MEDICATIONS? NO . WHEN DID YOU LAST EAT? ____ . WHEN DID YOU LAST DRINK? ____ . WHAT DID YOU LAST DRINK? ____ . NAME OF PERSON DRIVING YOU HOME? ____ . DO YOU HAVE ANY OTHER QUESTIONS OR CONCERNS NO . VITAL SIGNS WT 300 LBS, HT 61 IN, BMI 56.68 INDEX, BP 157/77 MM HG, HR 78 /MIN, RR 20 /MIN, TEMP 99 F, OXYGEN SAT % 95%, SAFE IN ENV? (Y/N) EM, NA INITIALS AW 1157. EXAMINATION GENERAL EXAMINATION: GENERAL APPEARANCE:USING WHEELCHAIR FOR MOBILITY . PSYCHALERT , ORIENTED X 3 , APPROPRIATE MOOD AND AFFECT , TALKATIVE. LUNGS:CLEAR TO AUSCULTATION BILATERALLY. HEART:HEART RATE REGULAR. MUSCULOSKELETAL:MUSCLE STRENGTH TESTING 4/5 BILATERAL LOWER EXTREMITIES. PAIN WITH PALPATION OVER LUMBAR SPINOUS PROCESSES. , TRIGGER POINTSAND TIGHT FIBROUS BANDS OVER LUMBAR AND THORACIC PARAVERTEBRAL MUSCLES. VERY DIFFICULT TO RISE TO STANDING POSITION TODAY. EXTREMITIES:DRESSING INTACT TO LEFT LEG WITHOUT OBSERVED DRAINAGE TODAY.. ASSESSMENTS OTHER CHRONIC PAIN - G89.29 (PRIMARY) DORSALGIA, UNSPECIFIED - M54.9 DIABETIC POLYNEUROPATHY ASSOCIATED WITH TYPE 2 DIABETES MELLITUS - E11.42 CHRONIC PRESCRIPTION OPIATE USE - Z79.891 TREATMENT OTHER CHRONIC PAIN REFILL SOMA TABLET, 350 MG, 1 TABLET NEEDED, ORALLY, THREE TIMES DAILY NEEDEDMDD=3, 30 DAY(S), 90, REFILLS 3 REFILL MS CONTIN TABLET EXTENDED RELEASE, 30 MG, 1 TABLET, ORALLY, Q 12 HOURS MDD=2, 30 DAY(S), 60, REFILLS 0 REFILL MORPHINE SULFATE TABLET, 15 MG, 1 TABLET NEEDED, ORALLY, EVERY 4 HRS PRN PAIN MDD=2, 30 DAY(S), 30, REFILLS 0 NOTES: TAKE TO CHARLIE ABOUT NARCAN FOR HOME PREVENTIONTALK TO DR LANDA ABOUT POWER CHAIR. CLINICAL NOTES: ISTOP REGISTRY REVIEWED AND DEMNOSTRATES COMPLLIANCE. BRINGS IN MEDICATIONS WHICH IS APPROPRIATE FOR WHAT WAS DISPENSED. RECENT URINE TOXICOLOGY REVIEWED. NO UNAUTHORIZED MEDICATIONS. NO ILLICIT SUBSTANCES AND PRESCRIBED MEDICATIONS WERE PRESENT. PROCEDURE CODES FA211 ESTABILISHED PATIENT [facility] FACILITY CHARGE T1712 PAIN ASSESS POS TOOL F/U PLAN DOC G8427 DOC MEDS VERIFIED W/PT OR RE DISPOSITION & COMMUNICATION FOLLOW UP 26-28 DAYS (REASON: BACK PAIN/LEG PAIN) ELECTRONICALLY SIGNED BY ROBYN BECERRA ON 05/20/2017 AT 04:33 PM EDT DISCLAIMER : THIS IS A VISIT SUMMARY EXTRACTED FROM THE [employer] CHART. IT IS NOT A COPY OF THE [employer] PROGRESS NOTE. ROXIED
== END ==
LOC: M PAIN 11:30
PROVIDERS: ATTEND Nurse Practitioner Family
DX: G89.29 Other chronic pain (principal); M54.9 Dorsalgia, unspecified; E11.42 Type 2 diabetes mellitus with diabetic polyneuropathy; E55.9 Vitamin D deficiency, unspecified; E78.5 Hyperlipidemia, unspecified; I10 Essential (primary) hypertension; K59.00 Constipation, unspecified; E11.51 Type 2 diabetes mellitus with diabetic peripheral angiopathy without gangrene; L29.9 Pruritus, unspecified; Z87.442 Personal history of urinary calculi; Z79.891 Long term (current) use of opiate analgesic; Z79.4 Long term (current) use of insulin; Z79.899 Other long term (current) drug therapy; Z79.82 Long term (current) use of aspirin

== ENCOUNTER → 2017-05-24 | Outpatient (REF) | payer MEDICARE, BC | LOC: M LAB REF 12:58 | PROVIDERS: ATTEND Internal Medicine Nephrology | DX: R31.9 Hematuria, unspecified (principal); N39.0 Urinary tract infection, site not specified ==

== ENCOUNTER → 2017-05-31 | Outpatient (REF) | payer MEDICARE, BC | LOC: M LAB REF 12:04 → EEVIPCON 12:04 | PROVIDERS: ATTEND Surgery | DX: I87.311 Chronic venous hypertension (idiopathic) with ulcer of right lower extremity (principal) ==

== ENCOUNTER → 2017-06-08 | Outpatient (CLI) | payer MEDICARE, BC ==
--- NOTE | 2017-07-07 01:16 | ECWPNPC ---
PATIENT NAME: PABLO MALDONADO : 1950 GENDER: MALE VISIT DATE: 06/08/2017 DISCHARGE DATE: 06/08/17 1221 VISIT LOCKED DATE TIME: PHYSICIAN: TIFFANY GUZMAN RESOURCE: TIFFANY GUZMAN HISTORY OF PRESENT ILLNESS HISTORY OF PRESENT ILLNESS: PAIN THE PATIENT DESCRIBES THE PAIN... FALL RISK SCREENING: SCREENING :NO FALLS IN THE PAST YEAR TODAY'S VISIT: NOTES: RATES PAIN TODAY 9/10. STATES THAT ALL BUT 7 OF LONG ACTING MORPHINE WENT DOWN THE SINK A WEEK AGO. STATES HAS BEEN USING HIS SHORT ACTING MORPHINEAND HAS BEEN TAKING 1 OF THE LONG ACTING MS DAILY. HAS HAD SOME WITHDRAWAL SX. . CURRENT MEDICATIONS TAKING NOVOLOG FLEXPEN 100 UNIT/ML SOLUTION PEN-INJECTOR SUBCUTANEOUS SLIDING SCALE, NOTES: SLIDING SCALE TAKING VITAMIN D 70687 U TABLET ORALLY WEEKLY TAKING PANTOPRAZOLE SODIUM 20 MG TABLET DELAYED RELEASE 2 TABLETS ORALLY ONCE A DAY TAKING ZOFRAN 8 MG TABLET 1 TABLET ORALLY ONCE A DAY PRN TAKING TOPROL XL 25 MG TABLET EXTENDED RELEASE 24 HOUR 1/2 TABLET ORALLY ONCE A DAY TAKING PRAVASTATIN SODIUM 20 MG TABLET 1 TABLET ORALLY ONCE A DAY TAKING BENADRYL 25 MG CAPSULE ORALLY FOUR TIMES DAILY NEEDED TAKING ASPIRIN ADULT LOW DOSE 81 MG TABLET DELAYED RELEASE 1 TABLET ORALLY ONCE A DAY TAKING ACETAMINOPHEN 325 MG TABLET 2 TABLETS NEEDED ORALLY EVERY 6 HRS, NOTES: TAKING 3 TABS BID TAKING GABAPENTIN 300 MG CAPSULE 1 CAPSULE ORALLY DAILY TAKING FISH OIL 1200 MG CAPSULE 1 CAPSULE ORALLY ONCE A DAY TAKING DIGESTIVE ADVANTAGE - CAPSULE ORALLY EVERY 4 HOURS NEEDED TAKING OXYBUTYNIN CHLORIDE 5 MG TABLET 1 TABLET ORALLY TWICE A DAY TAKING AMLODIPINE BESYLATE 5 MG TABLET 1 TABLET ORALLY ONCE A DAY TAKING SOMA 350 MG TABLET 1 TABLET NEEDED ORALLY THREE TIMES DAILY NEEDEDMDD=3 TAKING MS CONTIN 30 MG TABLET EXTENDED RELEASE 1 TABLET ORALLY Q 12 HOURS MDD=2 TAKING MORPHINE SULFATE 15 MG TABLET 1 TABLET NEEDED ORALLY EVERY 4 HRS PRN PAIN MDD=2 TAKING POTASSIUM CITRATE ER 15 MEQ (1620 MG) TABLET EXTENDED RELEASE 1 TABLET WITH MEALS ORALLY TWICE A DAY TAKING DOXYCYCLINE HYCLATE 100 MG TABLET 1 TABLET ORALLY TWICE A DAY NOT-TAKING CRANBERRY 500 MG CAPSULE 2 CAPS ORALLY DAILY NOT-TAKING VITAMIN C 500 MG TABLET 2 TABLETS ORALLY ONCE A DAY NOT-TAKING NORCO 7.5-325 MG TABLET 1 TABLET NEEDED ORALLY EVERY 6 HRS NOT-TAKING CIPRO 500 MG TABLET 1 TABLET ORALLY TWICE A DAY, NOTES: FOR UTI MEDICATION LIST REVIEWED AND RECONCILED WITH THE PATIENT PAST MEDICAL HISTORY TYPE II DIABETES MELLITUS CHRONIC PAIN SYNDROME PRURITIS VITAMIN D DEFICIENCY GERD HYPERLIPIDEMIA HYPERTENSION 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 SOCIAL HISTORY GENERAL: TOBACCO USE ARE YOU A:FORMER SMOKER 12 YEARS AGO HOW LONG HAS IT BEEN SINCE YOU LAST SMOKED?> 10 YEARS LUNG CANCER SCREENING SMOKING STATUS:FORMER SMOKER IS THE PATIENT BETWEEN THE AGE OF 55 AND 77?YES HAVE YOU QUIT SMOKING WITHIN THE PAST 15 YEARS?YES HAS THE PATIENT EVER BEEN DIAGNOSED WITH LUNG CANCER?NO ALCOHOL SCREENING DID YOU HAVE A DRINK CONTAINING ALCOHOL IN THE PAST YEAR?NO POINTS0 INTERPRETATIONNEGATIVE RECREATIONAL DRUG USE DRUG USE?NO CAFFEINE CAFFEINE USE?NO OCCUPATION: RETIRED. DIET: REGULAR. EXERCISE: NO REGULAR EXERCISE. MARITAL STATUS: . OTHERS AT HOME: SPOUSE. PETS: 2 DOGS. UATSDIN [id number] MANDAEISM LANGUAGE LANGUAGES SPOKEN:URDU EDUCATION LEVEL OF EDUCATION:NOT FINISHED COLLEGE LEARNING BARRIERS / SPECIAL NEEDS BARRIERS TO LEARNING?NO HEARING IMPAIRED?NO VISION IMPAIRED?YES COGNITIVELY IMPAIRED?NO :CORRECTIVE LENSES DOES NOT WEAR READINESS TO LEARN?YES LEARNING PREFERENCES?YES :TAPES/VIDEOS, DEMONSTRATION/VERBAL INSTRUCTION LEARNING CAPABILITIES PRESENT?YES EMOTIONAL BARRIERS?NO SPECIAL DEVICES?YES :WHEELCHAIR FINANCIAL MANAGEMENT ANALYST NEEDED?NO PAIN CLINIC PFS, CLERGY, PUBLIC HEALTH REFERRALS HAS THE PATIENT BEEN EDUCATED REGARDING HIS/HER PLAN OF CARE?YES HAS THE PATIENT BEEN EDUCATED REGARDING PAIN, THE RISK FOR PAIN, THE IMPORTANCE OF EFFECTIVE PAIN MANAGEMENT, AND THE PAIN ASSESSMENT PROCESS?YES PATIENT: ____. ADVANCE DIRECTIVES HEALTH CARE PROXY?NO WOULD YOU LIKE MORE INFORMATION?YES GIVEN DO YOU HAVE A DNR?NO WOULD YOU LIKE MORE INFORMATION?NO LIVING WILL?NO WOULD YOU LIKE MORE INFORMATION?NO POWER OF CREDIT ADMINISTRATION MANAGER?NO WOULD YOU LIKE MORE INFORMATION?NO RETIRED: [id number]. TRAVEL OUTSIDE US: DENIES TRAVEL. DOMESTIC VIOLENCE DO YOU FEEL SAFE IN YOUR ENVIRONMENT?YES REVIEW OF SYSTEMS REVIEWED BY: PROVIDER: TIFFANY MARTIN . CONSTITUTIONAL: ANY CHANGE IN YOUR MEDICAL CONDITION? YES, INFECTION BOTH LEGS . PATIENT COMPLAINING OF RECENT FEVER OF 105 - DOWN THE NEXT DAY - NO ABX STARTED. . CHILLS NO . FEVER NO . INFECTION: DO YOU HAVE NEW INFECTIONS? YES, IN LEGS . DO YOU HAVE HISTORY OF MRSA? YES, CURRENTLY IN LEGS . MUSCULOSKELETAL: ANY NEW PATTERNS OF PAIN OR NUMBNESS? NO . GASTROENTEROLOGY: GENERAL SEVERE NAUSEA AND EMESIS WITH HEMATEMISIS. . ANY NEW CHANGE IN BOWEL CONTROL? NO . ACID REFLUX YES - ON MEDS . GENITOURINARY: ANY NEW CHANGE IN BLADDER CONTROL? NO . IS THERE A CHANCE YOU COULD BE ? NO . HEMATOLOGY/LYMPH: DO YOU TAKE ANY BLOOD THINNERS? (FOR EXAMPLE- COUMADIN, PLAVIX, AGGRENOX, PLATEL, PRADAXA, OR XARELTO) NO . WHEN WAS YOUR LAST DOSE? DATE: TIME: . NEUROLOGY: HAVE YOU FALLEN IN THE PAST 6 MONTHS? YES, 3 MONTHS AGO--W/C WAS TO FAR FROM THE BED . ANY NEW EXTREMITY NUMBNESS OR WEAKNESS? NO . CARDIOLOGY: DO YOU HAVE A PACEMAKER OR DEFIBRILLATOR? NO . RESPIRATORY: HAVE YOU BEEN SICK IN THE PAST WEEK? NO . FEVER NO . FLU LIKE SYMPTOMS? NO . COUGH NO . INTEGUMENTARY: DO YOU HAVE ANY RASHES OR OPEN SORES? YES, BOTH LEGS--SEEING DR. ORSOCO . ALLERGIC/IMMUNO: ARE YOU ALLERGIC TO SHELLFISH OR IV DYE? NO . ANY NEW ALLERGIES? NO . PSYCHIATRIC: DO YOU HAVE THOUGHTS OF HURTING YOURSELF OR SOMEONE ELSE? NO . ARE YOU ABUSED, NEGLECTED, OR IN AN UNSAFE ENVIRONMENT? NO . ENDOCRINOLOGY: ARE YOU DIABETIC? YES, FSBS THIS A.M. 183 . OTHER: DO YOU NEED ANY PRESCRIPTIONS? YES . IF YES, PLEASE LIST: MORPHINE 15 AND 30 MGS, SOMA . ANY NEW PROBLEMS WITH YOUR MEDICATIONS? NO . WHEN DID YOU LAST EAT? ____ . WHEN DID YOU LAST DRINK? ____ . WHAT DID YOU LAST DRINK? ____ . NAME OF PERSON DRIVING YOU HOME? ____ . DO YOU HAVE ANY OTHER QUESTIONS OR CONCERNS NO . VITAL SIGNS WT 284.6 LBS, HT 61 IN, BMI 53.77 INDEX, BP 155/78 MM HG, HR 88 /MIN, RR 18 /MIN, TEMP 98.5 F, OXYGEN SAT % 96%, NA INITIALS SC 11:25, REVIEWED BY: AD. EXAMINATION GENERAL EXAMINATION: GENERAL APPEARANCE:USING WHEELCHAIR FOR MOBILITY . PSYCHALERT , ORIENTED X 3 , APPROPRIATE MOOD AND AFFECT , TALKATIVE. LUNGS:CLEAR TO AUSCULTATION BILATERALLY. HEART:HEART RATE REGULAR. MUSCULOSKELETAL:MUSCLE STRENGTH TESTING 4/5 BILATERAL LOWER EXTREMITIES. PAIN WITH PALPATION OVER LUMBAR SPINOUS PROCESSES. , TRIGGER POINTSAND TIGHT FIBROUS BANDS OVER LUMBAR AND THORACIC PARAVERTEBRAL MUSCLES. VERY DIFFICULT TO RISE TO STANDING POSITION TODAY. EXTREMITIES:DRESSING INTACT TO BOTH LEGS WITHOUT OBSERVED DRAINAGE TODAY. , NO EDEMA. ASSESSMENTS OTHER CHRONIC PAIN - G89.29 (PRIMARY) DORSALGIA, UNSPECIFIED - M54.9 DIABETIC POLYNEUROPATHY ASSOCIATED WITH TYPE 2 DIABETES MELLITUS - E11.42 CHRONIC PRESCRIPTION OPIATE USE - Z79.891 TREATMENT OTHER CHRONIC PAIN STOP MS CONTIN TABLET EXTENDED RELEASE, 30 MG, 1 TABLET, ORALLY, Q 12 HOURS MDD=2 REFILL MORPHINE SULFATE TABLET, 15 MG, 1-2 TABLET NEEDED, ORALLY, EVERY 4 HRS PRN PAIN MDD=5, 30 DAY(S), 150, REFILLS 0 NOTES: KEEP MEDICATIONS SAFE. CLINICAL NOTES: ISTOP REGISTRY REVIEWED AND DEMNOSTRATES COMPLLIANCE. BRINGS IN MEDICATIONS WHICH IS APPROPRIATE FOR WHAT WAS DISPENSED. RECENT URINE TOXICOLOGY REVIEWED. NO UNAUTHORIZED MEDICATIONS. NO ILLICIT SUBSTANCES AND PRESCRIBED MEDICATIONS WERE PRESENT. PROCEDURE CODES FA211 ESTABILISHED PATIENT [facility] CHARGE DISPOSITION & COMMUNICATION FOLLOW UP 26-28 DAYS (REASON: BACK PAIN) ELECTRONICALLY SIGNED BY ROBYN BECERRA ON 07/06/2017 AT 07:05 AM EDT DISCLAIMER : THIS IS A VISIT SUMMARY EXTRACTED FROM THE [employer] CHART. IT IS NOT A COPY OF THE [employer] PROGRESS NOTE. LUIS ENRIQUE
== END | disposition home or self-care (01) ==
LOC: M PAIN 11:00
PROVIDERS: ATTEND Nurse Practitioner Family
DX: G89.29 Other chronic pain (principal); M54.9 Dorsalgia, unspecified; E11.42 Type 2 diabetes mellitus with diabetic polyneuropathy; E55.9 Vitamin D deficiency, unspecified; K21.9 Gastro-esophageal reflux disease without esophagitis; E78.5 Hyperlipidemia, unspecified; I10 Essential (primary) hypertension; K59.00 Constipation, unspecified; N19 Unspecified kidney failure; Z99.2 Dependence on renal dialysis; M86.9 Osteomyelitis, unspecified; Z79.899 Other long term (current) drug therapy; Z79.4 Long term (current) use of insulin; Z79.82 Long term (current) use of aspirin; Z87.891 Personal history of nicotine dependence

== ENCOUNTER → 2017-07-10 | Outpatient (CLI) | payer MEDICARE, BC | LOC: M PAIN 10:00 | PROVIDERS: ATTEND Nurse Practitioner Family | DX: M54.9 Dorsalgia, unspecified (principal); G89.29 Other chronic pain; E11.42 Type 2 diabetes mellitus with diabetic polyneuropathy; E78.5 Hyperlipidemia, unspecified; K21.9 Gastro-esophageal reflux disease without esophagitis; I10 Essential (primary) hypertension; E55.9 Vitamin D deficiency, unspecified; Z79.4 Long term (current) use of insulin; Z79.82 Long term (current) use of aspirin; Z79.891 Long term (current) use of opiate analgesic; Z87.891 Personal history of nicotine dependence ==

== ENCOUNTER → 2017-09-12 | Outpatient (CLI) | payer MEDICARE, BC | LOC: M PAIN 10:30 | DX: G89.29 Other chronic pain (principal); M54.9 Dorsalgia, unspecified; E11.42 Type 2 diabetes mellitus with diabetic polyneuropathy; E55.9 Vitamin D deficiency, unspecified; K21.9 Gastro-esophageal reflux disease without esophagitis; E78.5 Hyperlipidemia, unspecified; E11.51 Type 2 diabetes mellitus with diabetic peripheral angiopathy without gangrene; I10 Essential (primary) hypertension; K59.00 Constipation, unspecified; Z79.891 Long term (current) use of opiate analgesic; Z87.442 Personal history of urinary calculi; Z79.4 Long term (current) use of insulin; Z79.82 Long term (current) use of aspirin; Z87.891 Personal history of nicotine dependence | CPT/HCPCS: G0463 ==

== ENCOUNTER → 2017-09-14 | Outpatient (CLI) | payer MEDICARE, BC | LOC: M RAD 12:20 | DX: N20.0 Calculus of kidney (principal); N18.3 Chronic kidney disease, stage 3 (moderate) | CPT/HCPCS: 74176 ==

== ENCOUNTER → 2017-10-22 | Outpatient (CLI) | payer MEDICARE, BC ==
[2017-10-22 11:53] LABS: HEMATOCRIT 35.2 % (42.0-52.0); HEMOGLOBIN 11.4 g/dl (14.0-18.0); MEAN CORPUSCULAR HEMOGLOBIN 27.7 pg (27.0-33.0); MEAN CORPUSCULAR HGB CONC 32.4 g/dl (32.0-36.5); MEAN CORPUSCULAR VOLUME 85.6 fl (80.0-96.0); PLATELET COUNT, AUTOMATED 177 10^3/uL (150-450); RED BLOOD COUNT 4.11 10^6/uL (4.30-6.10); RED CELL DISTRIBUTION WIDTH 14.6 % (11.5-14.5); WHITE BLOOD COUNT 9.3 10^3/uL (4.0-10.0)
[2017-10-22 12:05] LABS: INR 1.09; PROTHROMBIN TIME 14.3 SECONDS (12.4-14.5)
[2017-10-22 12:06] LABS: PARTIAL THROMBOPLASTIN TIME 27.5 SECONDS (26.8-37.9)
[2017-10-22 12:26] LABS: ANION GAP 9 MEQ/L (8-16); BLOOD UREA NITROGEN 28 MG/DL (7-18); CALCIUM LEVEL 8.7 MG/DL (8.8-10.2); CARBON DIOXIDE LEVEL 26 MEQ/L (21-32); CHLORIDE LEVEL 102 MEQ/L (98-107); CREATININE FOR GFR 1.66 MG/DL (0.70-1.30); GLOMERULAR FILTRATION RATE 44.2 (>49); GLUCOSE, FASTING 235 MG/DL (70-100); POTASSIUM SERUM 4.7 MEQ/L (3.5-5.1); PSA SCREENING 0.21 NG/ML (< 4.0); SODIUM LEVEL 137 MEQ/L (136-145)
== END ==
LOC: M LRY 10:36
DX: Z01.818 Encounter for other preprocedural examination (principal); N20.0 Calculus of kidney; N28.89 Other specified disorders of kidney and ureter; Z12.5 Encounter for screening for malignant neoplasm of prostate; Z86.711 Personal history of pulmonary embolism; E11.9 Type 2 diabetes mellitus without complications; E55.9 Vitamin D deficiency, unspecified; I10 Essential (primary) hypertension
CPT/HCPCS: 80048

== ENCOUNTER → 2017-10-22 | Outpatient (REF) | payer MEDICARE, BC ==
[2017-10-25 00:07] LABS: PROTEIN C FUNCTIONAL ACTIVITY 84 % (73-180); PROTEIN C RESISTANCE ACTIVATED 2.5 ratio (2.2-3.5); PROTEIN S FUNCTIONAL ACTIVITY 66 % (63-140)
[2017-10-25 00:07] LABS: ANTI THROMBIN 3 FUNCT ACTIVITY 100 % (75-135)
== END ==
LOC: M SFHCLERA 10:35
DX: E11.8 Type 2 diabetes mellitus with unspecified complications (principal); E55.9 Vitamin D deficiency, unspecified; I10 Essential (primary) hypertension; Z86.711 Personal history of pulmonary embolism

== ENCOUNTER → 2017-11-08 | Outpatient (CLI) | payer MEDICARE, BC | LOC: M PAIN 13:15 | DX: M54.9 Dorsalgia, unspecified (principal); G89.29 Other chronic pain; E11.42 Type 2 diabetes mellitus with diabetic polyneuropathy; R26.9 Unspecified abnormalities of gait and mobility; M48.061 Spinal stenosis, lumbar region without neurogenic claudication; K21.9 Gastro-esophageal reflux disease without esophagitis; E78.5 Hyperlipidemia, unspecified; I10 Essential (primary) hypertension; N19 Unspecified kidney failure; Z79.4 Long term (current) use of insulin; Z79.82 Long term (current) use of aspirin; Z79.891 Long term (current) use of opiate analgesic; Z79.899 Other long term (current) drug therapy; Z87.891 Personal history of nicotine dependence | CPT/HCPCS: G0463 ==

== ENCOUNTER → 2017-11-15 | Outpatient (REF) | payer MEDICARE, BC ==
[2017-11-15 19:52] LABS: CREATININE, URINE 45.7 MG/DL; MAU/CREAT RATIO 295.4 MCG/MG (0.0-30.0)
[2017-11-16 11:18] LABS: HEPATITIS B SURFACE ANTIGEN NEGATIVE (NEGATIVE)
[2017-11-16 11:38] LABS: HEPATITIS C VIRUS ABY INDEX 0.1 INDEX (<0.8)
[2017-11-16 11:39] LABS: HEPATITIS B CORE ANTIBODY IGM NEGATIVE (NEGATIVE)
[2017-11-16 11:41] LABS: HEPATITIS A ANTIBODY IGM NEGATIVE (NEGATIVE)
[2017-11-16 12:53] LABS: ALBUMIN 3.36 GM/DL (3.29-5.55); ALBUMIN % 37.3 % (55.8-66.1); ALPHA-1-GLOBULIN % 3.4 % (2.9-4.9); ALPHA-1-GLOBULINS 0.31 GM/DL (0.17-0.41); ALPHA-2-GLOBULINS 0.72 GM/DL (0.42-0.99); BETA-1-GLOBULINS 0.59 GM/DL (0.28-0.60); BETA-1-GLOBULINS % 6.5 % (4.7-7.2); BETA-2-GLOBULINS 0.68 GM/DL (0.19-0.55); BETA-2-GLOBULINS % 7.6 % (3.2-6.5); GAMMA GLOBULIN % 37.2 % (11.1-18.8); GAMMA GLOBULINS 3.35 GM/DL (0.65-1.58)
[2017-11-18 00:07] LABS: FREE KAPPA LIGHT CHAINS SERUM 182.3 mg/L (3.3-19.4); FREE LAMBDA LIGHT CHAINS SERUM 112.9 mg/L (5.7-26.3); KAPPA/LAMBDA RATIO SERUM 1.61 (0.26-1.65)
== END ==
LOC: M SFHCLERA 11:12
DX: R77.9 Abnormality of plasma protein, unspecified (principal); K75.81 Nonalcoholic steatohepatitis (NASH)
CPT/HCPCS: 84165

== ENCOUNTER 2017-11-26 08:55 | Day surgery (SDC) | payer MEDICARE, BC ==
[~2017-11-26 08:55] MED LIST: MIDAZOLAM INJ 2 MG/2 ML VIAL (J2250) As Ordered; fentaNYL 100 MCG/2 ML INJECTION (J3010) As Ordered
[2017-11-26] MEDS ORDERED: LIDOCAINE 1% MDV 20ML VIAL SQ (09:00)
[2017-11-26] MEDS ORDERED: CEFAZOLIN SOD 1 GM in APPROPRIATE DILUENT 1 EA IV (09:15)
[2017-11-26] MEDS: LR 1,000 ML IV ×2 (09:41→13:03)
[2017-11-26 09:48] LABS: BEDSIDE GLUCOSE 218 MG/DL (80-115)
[2017-11-26] MEDS ORDERED: LIDOCAINE 2% INJ 100 MG/5 ML SDV (FOR ANES.) As Ordered (10:01)
[2017-11-26] MEDS ORDERED: METOCLOPRAMIDE INJ 10MG/2ML VIAL (J2765) As Ordered (10:01)
[2017-11-26] MEDS ORDERED: PROPOFOL 200 MG/20 ML VIAL As Ordered (10:01)
[2017-11-26] MEDS ORDERED: ONDANSETRON 4MG/2ML VIAL (J2405) As Ordered (10:01)
[2017-11-26] MEDS ORDERED: ROCURONIUM BROMIDE 50 MG/5 ML VIAL As Ordered (10:08)
[2017-11-26] MEDS: LevoFLOXacin IV 500 MG in APPROPRIATE DILUENT 1 EA IV (10:15)
[2017-11-26] MEDS ORDERED: PHENYLEPHRINE INJ 10MG/ML VIAL (J2370) As Ordered (10:59)
[2017-11-26] MEDS: CONRAY-60 60% 50ML VIAL (Q9961) As Ordered (11:09)
[2017-11-26] MEDS ORDERED: SUGAMMADEX SODIUM 500 MG/5 ML VIAL (BRIDION) As Ordered (12:39)
[2017-11-26] MEDS ORDERED: MORPHINE 10 MG/ML 1ML VIAL (J2270) As Ordered (13:13)
[2017-11-26] MEDS: MORPHINE 10 MG/ML 1ML VIAL (J2270) IV ×5 (13:20→13:40)
[2017-11-26] MEDS ORDERED: fentaNYL 100 MCG/2 ML INJECTION (J3010) IV (13:30)
[2017-11-26] MEDS ORDERED: ONDANSETRON 4MG/2ML VIAL (J2405) IV (13:30)
[2017-11-26] MEDS: PERCOCET 5MG/325MG TAB PO ×2 (13:30→14:00)
[2017-11-26] MEDS ORDERED: PERCOCET 5MG/325MG TAB PO ×2 (13:30)
[2017-11-26] MEDS ORDERED: METOCLOPRAMIDE INJ 10MG/2ML VIAL (J2765) IV (13:30)
[2017-11-29 01:48] LABS: BEDSIDE GLUCOSE 202 MG/DL (80-115)
== END 2017-11-26 16:10 | disposition home or self-care (01) ==
LOC: M SDC 08:55
DX: N20.0 Calculus of kidney (principal); D41.01 Neoplasm of uncertain behavior of right kidney; N13.5 Crossing vessel and stricture of ureter without hydronephrosis; I12.9 Hypertensive chronic kidney disease with stage 1 through stage 4 chronic kidney disease, or unspecified chronic kidney disease; E10.9 Type 1 diabetes mellitus without complications; G89.4 Chronic pain syndrome; L21.9 Seborrheic dermatitis, unspecified; R91.1 Solitary pulmonary nodule; E55.9 Vitamin D deficiency, unspecified; K21.9 Gastro-esophageal reflux disease without esophagitis; E78.5 Hyperlipidemia, unspecified; N18.3 Chronic kidney disease, stage 3 (moderate); R29.898 Other symptoms and signs involving the musculoskeletal system; M12.9 Arthropathy, unspecified; L85.3 Xerosis cutis; R06.83 Snoring; R60.0 Localized edema; I87.2 Venous insufficiency (chronic) (peripheral); R94.31 Abnormal electrocardiogram [ECG] [EKG]; E66.01 Morbid (severe) obesity due to excess calories; K74.60 Unspecified cirrhosis of liver; R77.9 Abnormality of plasma protein, unspecified; E78.2 Mixed hyperlipidemia; L97.908 Non-pressure chronic ulcer of unspecified part of unspecified lower leg with other specified severity; I83.009 Varicose veins of unspecified lower extremity with ulcer of unspecified site; M47.27 Other spondylosis with radiculopathy, lumbosacral region; G37.3 Acute transverse myelitis in demyelinating disease of central nervous system; Z79.899 Other long term (current) drug therapy; Z79.82 Long term (current) use of aspirin; Z79.4 Long term (current) use of insulin; Z86.718 Personal history of other venous thrombosis and embolism; Z86.711 Personal history of pulmonary embolism; Z87.891 Personal history of nicotine dependence; Z87.81 Personal history of (healed) traumatic fracture
CPT/HCPCS: 52356

== ENCOUNTER → 2017-12-20 | Outpatient (CLI) | payer MEDICARE, BC | LOC: M PAIN 13:45 | DX: M54.9 Dorsalgia, unspecified (principal); G89.29 Other chronic pain; E11.42 Type 2 diabetes mellitus with diabetic polyneuropathy; E11.22 Type 2 diabetes mellitus with diabetic chronic kidney disease; N18.3 Chronic kidney disease, stage 3 (moderate); R26.9 Unspecified abnormalities of gait and mobility; M48.061 Spinal stenosis, lumbar region without neurogenic claudication; K21.9 Gastro-esophageal reflux disease without esophagitis; E78.5 Hyperlipidemia, unspecified; Z79.82 Long term (current) use of aspirin; Z79.4 Long term (current) use of insulin; Z79.891 Long term (current) use of opiate analgesic; Z79.899 Other long term (current) drug therapy; Z87.891 Personal history of nicotine dependence | CPT/HCPCS: G0463 ==

== ENCOUNTER → 2018-01-15 | Outpatient (REF) | payer MEDICARE, BC ==
[2018-01-17 10:58] LABS: ALBUMIN % 35.9 % (55.8-66.1); ALPHA-1-GLOBULIN % 3.7 % (2.9-4.9); ALPHA-2-GLOBULINS % 8.3 % (7.1-11.8); BETA-1-GLOBULINS % 6.2 % (4.7-7.2)
[2018-01-17 10:59] LABS: ALBUMIN 3.59 GM/DL (3.29-5.55); ALPHA-1-GLOBULINS 0.37 GM/DL (0.17-0.41); ALPHA-2-GLOBULINS 0.83 GM/DL (0.42-0.99); BETA-1-GLOBULINS 0.62 GM/DL (0.28-0.60); BETA-2-GLOBULINS 0.79 GM/DL (0.19-0.55); BETA-2-GLOBULINS % 7.9 % (3.2-6.5)
[2018-01-17 11:17] LABS: IMMUNOTYPING SERUM IGG ABNORMAL (NORMAL); IMMUNOTYPING SERUM KAPPA ABNORMAL (NORMAL)
[2018-01-18 00:07] LABS: FREE LAMBDA LIGHT CHAINS SERUM 161.8 mg/L (5.7-26.3); KAPPA/LAMBDA RATIO SERUM 1.71 (0.26-1.65)
== END ==
LOC: M LAB REF 18:52
DX: D47.2 Monoclonal gammopathy (principal)
CPT/HCPCS: 84165

== ENCOUNTER → 2018-01-17 | Outpatient (REF) | payer MEDICARE, BC ==
[2018-01-17 14:55] LABS: TOTAL PROTEIN 9.3 GM/DL (6.4-8.2)
[2018-01-19 00:06] LABS: FREE KAPPA LIGHT CHAINS SERUM 274.2 mg/L (3.3-19.4); FREE LAMBDA LIGHT CHAINS SERUM 160.5 mg/L (5.7-26.3); KAPPA/LAMBDA RATIO SERUM 1.71 (0.26-1.65)
[2018-01-21 12:57] LABS: ALBUMIN 3.27 GM/DL (3.29-5.55); ALBUMIN % 35.2 % (55.8-66.1); ALPHA-1-GLOBULIN % 3.6 % (2.9-4.9); ALPHA-1-GLOBULINS 0.33 GM/DL (0.17-0.41); ALPHA-2-GLOBULINS 0.78 GM/DL (0.42-0.99); ALPHA-2-GLOBULINS % 8.4 % (7.1-11.8); BETA-1-GLOBULINS % 6.5 % (4.7-7.2); BETA-2-GLOBULINS 0.71 GM/DL (0.19-0.55); BETA-2-GLOBULINS % 7.6 % (3.2-6.5); GAMMA GLOBULIN % 38.7 % (11.1-18.8)
[2018-01-21 13:12] LABS: IMMUNOTYPING SERUM IGG ABNORMAL (NORMAL); IMMUNOTYPING SERUM KAPPA ABNORMAL (NORMAL)
== END ==
LOC: M LAB REF 13:19
DX: R80.9 Proteinuria, unspecified (principal)
CPT/HCPCS: 84165

== ENCOUNTER → 2018-01-21 | Outpatient (REF) | payer MEDICARE, BC ==
[2018-01-21 19:14] LABS: URINE VOLUME 2000 ML
[2018-01-21 19:49] LABS: TOTAL PROTEIN,RANDOM URINE 91.9 MG/DL (0.0-12.0); URINE TOTAL PROTEIN 91.9 MG/DL (0-12)
[2018-01-24 14:23] LABS: IMMUNOTYPE URINE IgG ABNORMAL (NORMAL); IMMUNOTYPE URINE KAPPA ABNORMAL (NORMAL)
[2018-01-24 14:25] LABS: UPEP INTERPRETATION 2 M-SPIKES IN GAMMA
== END ==
LOC: M LAB REF 16:47
DX: C90.00 Multiple myeloma not having achieved remission (principal)
CPT/HCPCS: 84166

== ENCOUNTER → 2018-02-19 | Outpatient (CLI) | payer MEDICARE, BC | LOC: M PAIN 13:00 | DX: G89.29 Other chronic pain (principal); M54.9 Dorsalgia, unspecified; E11.42 Type 2 diabetes mellitus with diabetic polyneuropathy; R26.9 Unspecified abnormalities of gait and mobility; M48.061 Spinal stenosis, lumbar region without neurogenic claudication; E55.9 Vitamin D deficiency, unspecified; K21.9 Gastro-esophageal reflux disease without esophagitis; E78.5 Hyperlipidemia, unspecified; I10 Essential (primary) hypertension; N28.9 Disorder of kidney and ureter, unspecified; Z79.4 Long term (current) use of insulin; Z79.82 Long term (current) use of aspirin; Z79.891 Long term (current) use of opiate analgesic; Z79.899 Other long term (current) drug therapy; Z86.718 Personal history of other venous thrombosis and embolism; Z86.79 Personal history of other diseases of the circulatory system; Z87.891 Personal history of nicotine dependence | CPT/HCPCS: G0463 ==

== ENCOUNTER → 2018-03-28 | Outpatient (REF) | payer MEDICARE, BC ==
[2018-03-28 14:40] LABS: IMMUNOGLOBULIN G 3810 MG/DL (681-1648); IMMUNOGLOBULIN M 24.5 MG/DL (40-230); TOTAL PROTEIN 9.8 GM/DL (6.4-8.2)
[2018-03-30 00:14] LABS: FREE KAPPA LIGHT CHAINS SERUM 390.9 mg/L (3.3-19.4); FREE LAMBDA LIGHT CHAINS SERUM 229.5 mg/L (5.7-26.3)
[2018-04-01 14:54] LABS: ALBUMIN 2.82 GM/DL (3.29-5.55); ALBUMIN % 28.8 % (55.8-66.1); ALPHA-1-GLOBULINS 0.49 GM/DL (0.17-0.41); ALPHA-2-GLOBULINS 0.91 GM/DL (0.42-0.99); ALPHA-2-GLOBULINS % 9.3 % (7.1-11.8); BETA-1-GLOBULINS 0.54 GM/DL (0.28-0.60); BETA-1-GLOBULINS % 5.5 % (4.7-7.2); BETA-2-GLOBULINS % 9.2 % (3.2-6.5); GAMMA GLOBULIN % 42.2 % (11.1-18.8); GAMMA GLOBULINS 4.14 GM/DL (0.65-1.58)
== END ==
LOC: M LAB REF 13:51
DX: D47.2 Monoclonal gammopathy (principal); D64.9 Anemia, unspecified
CPT/HCPCS: 84165

== ENCOUNTER 2018-04-04 12:43 | Outpatient (CLI) | payer MEDICARE, BC ==
[2018-04-04] MEDS ORDERED: LIDOCAINE 1% MDV 20ML VIAL As Ordered (13:06)
[2018-04-04] MEDS ORDERED: fentaNYL 100 MCG/2 ML INJECTION (J3010) As Ordered (13:38)
[2018-04-04] MEDS ORDERED: MIDAZOLAM INJ 2 MG/2 ML VIAL (J2250) As Ordered (13:39)
[2018-04-04] MEDS ORDERED: NORCO, ANEXSIA 5/325MG TABLET (HYDROcodone/ACETAMINOPHEN) As Ordered (14:59)
[2018-04-04] MEDS ORDERED: fentaNYL 100 MCG/2 ML INJECTION (J3010) IV (15:00)
[2018-04-04] MEDS ORDERED: ONDANSETRON 4MG/2ML VIAL (J2405) IV (15:00)
[2018-04-04] MEDS ORDERED: LR 1,000 ML IV (15:00)
[2018-04-04] MEDS: NORCO, ANEXSIA 5/325MG TABLET (HYDROcodone/ACETAMINOPHEN) PO (15:00)
== END 2018-04-04 17:11 | disposition home or self-care (01) ==
LOC: M RADPRO 12:43
DX: D47.2 Monoclonal gammopathy (principal)
CPT/HCPCS: 38222

== ENCOUNTER → 2018-04-22 | Outpatient (CLI) | payer MEDICARE, BC | LOC: M PAIN 13:00 | DX: G89.29 Other chronic pain (principal); M54.9 Dorsalgia, unspecified; E11.42 Type 2 diabetes mellitus with diabetic polyneuropathy; Z79.891 Long term (current) use of opiate analgesic; R26.9 Unspecified abnormalities of gait and mobility; M48.061 Spinal stenosis, lumbar region without neurogenic claudication; T40.2X5A Adverse effect of other opioids, initial encounter; K59.03 Drug induced constipation; E55.9 Vitamin D deficiency, unspecified; K21.9 Gastro-esophageal reflux disease without esophagitis; E78.5 Hyperlipidemia, unspecified; I10 Essential (primary) hypertension; E11.51 Type 2 diabetes mellitus with diabetic peripheral angiopathy without gangrene; D47.2 Monoclonal gammopathy; Z86.718 Personal history of other venous thrombosis and embolism; Z87.891 Personal history of nicotine dependence; Z79.82 Long term (current) use of aspirin; Z79.4 Long term (current) use of insulin; Z79.899 Other long term (current) drug therapy | CPT/HCPCS: G0463 ==

== ENCOUNTER → 2018-04-29 | Outpatient (REF) | payer MEDICARE, BC ==
[2018-04-29 19:09] LABS: FERRITIN 165 NG/ML (26-388); IRON (FE) 30 UG/DL (65-175); PERCENT SATURATION 19.1 % (19.7-50.0); TOTAL IRON BINDING CAPACITY 157 UG/DL (250-450)
[2018-04-29 19:10] LABS: VITAMIN B12 LEVEL 935 PG/ML (247-911)
== END ==
LOC: M LAB REF 18:06
DX: D64.9 Anemia, unspecified (principal)
CPT/HCPCS: 83550